=== PATIENT | male | born 1970 | race Caucasian/White ===

== ENCOUNTER 2022-09-26 07:50 | Outpatient (CLI) | payer BC, SELFPAY | END 2022-09-26 07:51 | disposition home or self-care (01) | PROVIDERS: PCP Family Medicine; Visit Provider Surgery | DX: E11.622 Type 2 diabetes mellitus with other skin ulcer (principal); L97.821 Non-pressure chronic ulcer of other part of left lower leg limited to breakdown of skin; Z79.4 Long term (current) use of insulin | CPT/HCPCS: 97602; 99213 ==

== ENCOUNTER 2022-10-03 07:54 | Outpatient (CLI) | payer BC, SELFPAY | END 2022-10-03 07:55 | disposition home or self-care (01) | PROVIDERS: PCP Family Medicine; Visit Provider Surgery | DX: E11.622 Type 2 diabetes mellitus with other skin ulcer (principal); L97.821 Non-pressure chronic ulcer of other part of left lower leg limited to breakdown of skin; Z79.4 Long term (current) use of insulin | CPT/HCPCS: 97597 ==

== ENCOUNTER 2022-10-10 08:07 | Outpatient (CLI) | payer BC, SELFPAY | END 2022-10-10 08:08 | disposition home or self-care (01) | PROVIDERS: PCP Family Medicine; Visit Provider Surgery | DX: E11.622 Type 2 diabetes mellitus with other skin ulcer (principal); L97.221 Non-pressure chronic ulcer of left calf limited to breakdown of skin; Z79.4 Long term (current) use of insulin | CPT/HCPCS: 99214 ==

== ENCOUNTER 2022-10-17 08:04 | Outpatient (CLI) | payer BC, SELFPAY | END 2022-10-17 08:05 | disposition home or self-care (01) | PROVIDERS: PCP Family Medicine; Visit Provider Surgery | DX: E11.622 Type 2 diabetes mellitus with other skin ulcer (principal); L97.221 Non-pressure chronic ulcer of left calf limited to breakdown of skin; Z79.84 Long term (current) use of oral hypoglycemic drugs | CPT/HCPCS: 99213 ==

== ENCOUNTER 2022-10-24 08:02 | Outpatient (CLI) | payer BC, SELFPAY | END 2022-10-24 08:03 | disposition home or self-care (01) | PROVIDERS: PCP Family Medicine; Visit Provider Surgery | DX: E11.622 Type 2 diabetes mellitus with other skin ulcer (principal); L97.822 Non-pressure chronic ulcer of other part of left lower leg with fat layer exposed; I87.312 Chronic venous hypertension (idiopathic) with ulcer of left lower extremity; L97.828 Non-pressure chronic ulcer of other part of left lower leg with other specified severity | CPT/HCPCS: 99213 ==

== ENCOUNTER 2022-10-31 08:15 | Outpatient (CLI) | payer BC, SELFPAY | END 2022-10-31 08:16 | disposition home or self-care (01) | PROVIDERS: PCP Family Medicine; Visit Provider Surgery | DX: E11.622 Type 2 diabetes mellitus with other skin ulcer (principal); L97.221 Non-pressure chronic ulcer of left calf limited to breakdown of skin; Z79.84 Long term (current) use of oral hypoglycemic drugs | CPT/HCPCS: 99213 ==

== ENCOUNTER 2022-11-07 08:11 | Outpatient (CLI) | payer BC, SELFPAY | END 2022-11-07 08:12 | disposition home or self-care (01) | PROVIDERS: PCP Family Medicine; Visit Provider Surgery | DX: E11.622 Type 2 diabetes mellitus with other skin ulcer (principal); L97.221 Non-pressure chronic ulcer of left calf limited to breakdown of skin; Z79.4 Long term (current) use of insulin | CPT/HCPCS: 99213 ==

== ENCOUNTER 2022-11-21 12:46 | Outpatient (CLI) | payer BC, SELFPAY | END 2022-11-21 12:47 | disposition home or self-care (01) | PROVIDERS: PCP Family Medicine; Visit Provider Surgery | DX: I87.312 Chronic venous hypertension (idiopathic) with ulcer of left lower extremity (principal); L97.222 Non-pressure chronic ulcer of left calf with fat layer exposed | CPT/HCPCS: 99213 ==

== ENCOUNTER 2022-11-28 12:33 | Outpatient (CLI) | payer BC, SELFPAY | END 2022-11-28 12:34 | disposition home or self-care (01) | PROVIDERS: PCP Family Medicine; Visit Provider Surgery | DX: E11.622 Type 2 diabetes mellitus with other skin ulcer (principal); L97.828 Non-pressure chronic ulcer of other part of left lower leg with other specified severity; Z79.84 Long term (current) use of oral hypoglycemic drugs | CPT/HCPCS: 99213 ==

== ENCOUNTER 2022-12-05 13:50 | Outpatient (CLI) | payer BC, SELFPAY | END 2022-12-05 13:51 | disposition home or self-care (01) | PROVIDERS: PCP Family Medicine; Visit Provider Surgery | DX: E11.622 Type 2 diabetes mellitus with other skin ulcer (principal); I87.312 Chronic venous hypertension (idiopathic) with ulcer of left lower extremity; L97.221 Non-pressure chronic ulcer of left calf limited to breakdown of skin; Z79.84 Long term (current) use of oral hypoglycemic drugs | CPT/HCPCS: 99212 ==

== ENCOUNTER 2024-01-13 09:30 | Outpatient (RCR) | payer BC, MEDICARE, OTHER, MEDICAID, SELFPAY | END 2024-05-12 23:59 | disposition home or self-care (01) | PROVIDERS: PCP Family Medicine; Visit Provider Family Medicine | DX: M62.81 Muscle weakness (generalized) (principal); Z89.611 Acquired absence of right leg above knee; Z51.89 Encounter for other specified aftercare; R29.3 Abnormal posture | CPT/HCPCS: 97110; 97112; 97116; 97162; 97535; 99213 ==

== ENCOUNTER 2024-05-07 14:00 | Outpatient (CLI) | payer OTHER, SELFPAY | END 2024-05-07 14:01 | disposition home or self-care (01) | LOC: WOUND 14:02 | PROVIDERS: PCP Surgery; Visit Provider Physician Assistant | DX: L85.9 Epidermal thickening, unspecified (principal); E11.628 Type 2 diabetes mellitus with other skin complications; R60.9 Edema, unspecified; Z89.611 Acquired absence of right leg above knee; Z79.4 Long term (current) use of insulin; Z79.84 Long term (current) use of oral hypoglycemic drugs | CPT/HCPCS: G0463 ==